=== PATIENT | female | born 2005 | race Caucasian/White ===

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

== ENCOUNTER 2024-03-26 20:16 | Emergency (ER) | payer MEDICAID, OTHER ==
--- NOTE | 2024-03-26 20:18 | ERPHSYRPT ---
- History of Present Illness Time Seen by Provider: 03/26/24 20:18 Source: patient, family Exam Limitations: no limitations Physician History: This is a 18-year-old white female patient who was swimming at a pool and dove into the pool and felt a "pop" in her left ear. This occurred approximately 1700 prior to arrival. Over the next couple of hours her pain was worsening. Patient has no new drug allergies and she takes no medications chronically. Patient did receive ibuprofen at home but this did not help her pain much. Patient has no visual changes and patient did not lose consciousness. Timing/Duration: abrupt onset ENT Location: ear (L) Prearrival Treatment: over the counter meds (Ibuprofen) Modifying Factors: Improves With: nothing Associated Symptoms: ear pain (L) Allergies/Adverse Reactions: No Known Drug Allergies Allergy (Verified 03/26/24 20:27) Hx Tetanus, Diphtheria Vaccination/Date Given: Yes Hx Influenza Vaccination/Date Given: No Hx Pneumococcal Vaccination/Date Given: No Travel Risk - International Travel Have you traveled outside of the country in past 3 weeks: No - Emerging Infectious Disease Are you exhibiting symptoms associated with any current EIDs: No - Review of Systems Constitutional: No Symptoms Eyes: No Symptoms Ears, Nose, & Throat: Ear Pain (Left), No Hearing Changes, No Tinnitus Respiratory: No Symptoms Cardiac: No Symptoms Abdominal/Gastrointestinal: No Symptoms Genitourinary Symptoms: No Symptoms Musculoskeletal: No Symptoms Skin: No Symptoms Neurological: No Symptoms Psychological: No Symptoms Endocrine: No Symptoms Hematologic/Lymphatic: No Symptoms Immunological/Allergic: No Symptoms All Other Systems: Reviewed and Negative - Past Medical History Pertinent Past Medical History: No - Past Surgical History Past Surgical History: No - Social History Smoking Status: Never smoker Exposure to second hand smoke: No Drug Use: none Patient Lives Alone: No - Nursing Vital Signs Nursing Vital Signs: Initial Vital Signs Temperature 97.7 F 03/26/24 20:20 Pulse Rate 73 03/26/24 20:20 Respiratory Rate 16 03/26/24 20:20 Blood Pressure 121/73 03/26/24 20:20 O2 Sat by Pulse Oximetry 98 03/26/24 20:20 Pain Scale Pain Intensity 5 - Physical Exam General Appearance: no apparent distress, alert, anxiety Eye Exam: bilateral eye: normal inspection, PERRL, EOMI Ear Exam: right ear: canal normal, TM normal, left ear: tenderness, TM red, TM bulging, other (No perforation of tympanic membrane), bilateral ear: auricle normal Nasal Exam: normal inspection Throat Exam: normal Neck Exam: normal inspection, non-tender, supple, full range of motion, trachea midline Cardiovascular/Respiratory Exam: chest non-tender, no respiratory distress Abdominal Exam: non-tender Neurologic Exam: alert, oriented x 3, cooperative, collections rep II-XII nml as tested, nml cerebellar function, nml station & gait, sensation nml Skin Exam: normal color, warm, dry SpO2 Interpretation: normal O2 Delivery: Room Air - Course Nursing assessment & vital signs reviewed: Yes Ordered Tests: Medication Summary Discontinued Medications Generic Name Dose Route Start Last Admin Trade Name Freq PRN Reason Stop Dose Admin Amoxicillin 500 mg 03/26/24 21:24 03/26/24 21:29 Amoxicillin Trihydrate 500 Mg Capsule PO 03/26/24 21:25 500 mg STAT ONE Administration Amoxicillin Confirm 03/26/24 21:27 Amoxicillin Trihydrate 500 Mg Capsule Administered 03/26/24 21:28 Dose 500 mg .ROUTE .STK-MED ONE Prednisone 20 mg 03/26/24 21:25 03/26/24 21:29 Prednisone 20 Mg Tablet PO 03/26/24 21:26 20 mg STAT ONE Administration Prednisone Confirm 03/26/24 21:27 Prednisone 20 Mg Tablet Administered 03/26/24 21:28 Dose 20 mg .ROUTE .STK-MED ONE - Progress Progress: improved, pain not gone completely, re-examined Progress Note: 03/26/24 21:53 My medical decision making and the assignment of low complexity to this patient's medical issue was based on the patient's past medical history, review of the patient's medication list, review of patient drug allergy list, history present illness and physical findings on examination. The workup in this patient does not require radiographic or laboratory studies. Counseled pt/family regarding: diagnosis, need for follow-up Medical Desision Making - Independent Historian Additional History obtained from: Mother - Diagnostic Testing Diagnostic test were ordered, analyzed, and reviewed by me: No - Risk of complications The pt has a mod risk of morbidity or mortality based on: Need for prescription drug management - Departure Departure Disposition: Home Clinical Impression: Left otitis media Condition: Stable Critical Care Time: No Referrals: CANDIDA ENGLISH [Primary Care Provider] - Follow up/PCP as directed Additional Instructions: Take the antibiotics and steroids as prescribed. After you use your [place] 5/325 pain medicine, resume plain Tylenol and ibuprofen for pain control. Call your primary care provider tomorrow, 03/27/2024, to make arranges for follow-up appointment for further evaluation management and to be seen in the next 3 to 5 days. Prescriptions: Amoxicillin 500 mg Cap [Amoxil 500 mg] 500 mg PO TID #30 cap Prednisone 5 mg [Deltasone 5 mg] 5 mg PO TID #12 tablet
[2024-03-26 20:27] VITALS: RESP 16; TEMP 97.7
[2024-03-26] MEDS ORDERED: AMOXIL 500 MG ONE (21:27)
[2024-03-26] MEDS ORDERED: DELTASONE 20 MG ONE (21:27)
[2024-03-26] MEDS: AMOXIL 500 MG PO ONE (21:29)
[2024-03-26] MEDS: DELTASONE 20 MG PO ONE (21:29)
[2024-03-26] MEDS ORDERED: NORCO 5/325 MG ONE (21:54)
[2024-03-26] MEDS: NORCO 5/325 MG PO ONE (21:56)
[2024-03-26 22:02] VITALS: BP 114/71; PULSE 68; O2SAT 99
== END 2024-03-26 22:02 | disposition home or self-care (01) ==
LOC: ED 20:16
DX: H66.92 Otitis media, unspecified, left ear (principal); H92.02 Otalgia, left ear; Z79.52 Long term (current) use of systemic steroids
CPT/HCPCS: 99282; A9270-GY

== ENCOUNTER 2025-02-04 19:30 | Emergency (ER) | payer MEDICAID, OTHER ==
[2025-02-04 20:29] VITALS: TEMP 97.5; O2SAT 99
--- NOTE | 2025-02-04 20:53 | ERPHSYRPT ---
- History of Present Illness Source: patient Exam Limitations: no limitations Patient Subjective Stated Complaint: fell out of truck bed and fell on rt side yesterday. 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 no visible scrapes or injuries, pt grimacing when moves neck. pt states she did not start having neck pain until 6 hours post fall Physician History: Patient fell out of the truck bed trying to get out. She is trying to ease over the tailgate and rolled out. She landed on her right side. She has right shoulder pain and left neck pain. The neck pain is in the cervical muscles. She has no neurological deficits. There is no obvious deformities.There is no head injury or loss of consciousness.The event happened about 36 hours ago. Allergies/Adverse Reactions: No Known Drug Allergies Allergy (Verified 03/26/24 20:27) Hx Tetanus, Diphtheria Vaccination/Date Given: Yes Hx Influenza Vaccination/Date Given: No Hx Pneumococcal Vaccination/Date Given: No Travel Risk - International Travel Have you traveled outside of the country in past 3 weeks: No - Emerging Infectious Disease Are you exhibiting symptoms associated with any current EIDs: No - Review of Systems Constitutional: No Symptoms Eyes: No Symptoms Respiratory: No Symptoms Cardiac: No Symptoms Musculoskeletal: Joint Pain (Right shoulder) Skin: No Symptoms Neurological: No Symptoms All Other Systems: Reviewed and Negative - Past Medical History Pertinent Past Medical History: No - Past Surgical History Past Surgical History: No - Female History Hx Last Menstrual Period: 01/17/25 Hx Now: No - Social History Smoking Status: Never smoker Exposure to second hand smoke: No Drug Use: none - Social Determinants of Health Will the patient participate in the screening: Declined to provide - Nursing Vital Signs Nursing Vital Signs: Initial Vital Signs Temperature 97.5 F 02/04/25 20:09 Pulse Rate 84 02/04/25 20:09 Respiratory Rate 20 02/04/25 20:09 Blood Pressure 125/77 02/04/25 20:09 O2 Sat by Pulse Oximetry 99 02/04/25 20:09 Pain Scale Pain Intensity 4 - Physical Exam General Appearance: no apparent distress Eyes, Ears, Nose, Throat Exam: normal ENT inspection Neck Exam: limited range of motion (Due to pain), tenderness lateral (Left side), tenderness midline (Diffusely down the entire C-spine), No subcutaneous emphysema Cardiovascular/Respiratory Exam: chest non-tender, normal breath sounds Abdominal Exam: non-tender Shoulder Exam: limited ROM (Due to pain. There is no obvious deformities. Peripheral neurovascular is intact distal to the injury. There is no point tenderness.) SpO2: 99 Comments: Pain response seems exaggerated - Course Nursing assessment & vital signs reviewed: Yes Ordered Tests: Active Orders 24 hr Category Date Time Status CERVICAL SPINE (2 OR 3 VIEW) Stat Exams 02/04/25 20:49 Taken SHOULDER Stat Exams 02/04/25 20:49 Taken Medication Summary Discontinued Medications Generic Name Dose Route Start Last Admin Trade Name Peterson PRN Reason Stop Dose Admin Hydrocodone Bitart/Acetaminophen 1 tab 02/04/25 20:50 02/04/25 21:40 Hydrocodone/Apap 5/325 1 Tab Tablet PO 02/04/25 20:51 1 tab STAT ONE Administration Hydrocodone Bitart/Acetaminophen Confirm 02/04/25 21:39 Hydrocodone/Apap 5/325 1 Tab Tablet Administered 02/04/25 21:40 Dose 1 tab .ROUTE .STK-MED ONE - Progress Progress: improved Progress Note: Patient got x-rays of her cervical spine and shoulder. They went interpreted by me. The right shoulder showed no acute findings. The cervical spine film showed some reverse lordosis. The patient stable. Unguinal put her in a sling for her shoulder and give her some [place] and ibuprofen. I think she just has a cervical strain and a shoulder strain. She is a follow-up with her primary care doctor return symptoms worsen. 02/04/25 22:16 - Departure Departure Disposition: Home Clinical Impression: Right shoulder strain, Cervical strain, acute Condition: Stable Critical Care Time: No Referrals: CANDIDA ENGLISH [Primary Care Provider, INTERNAL MEDICINE] - Follow up/PCP as directed Instructions: Cervical Sprain ED Additional Instructions: Meds as directed Ice the areas that hurt, and wear sling as needed
[2025-02-04] MEDS ORDERED: NORCO 5/325 MG ONE (21:39)
[2025-02-04] MEDS: NORCO 5/325 MG PO ONE (21:40)
[2025-02-04 22:27] VITALS: BP 108/71; PULSE 75; RESP 18
--- NOTE | 2025-02-05 08:46 | XRAY ---
Indication: Pain following fall. Comparison: None 3 view cervical spine demonstrates minimal lordotic reversal, positional versus paraspinal spasm. No other bony, articular, or soft tissue abnormalities.
--- NOTE | 2025-02-05 08:47 | XRAY ---
Indication: Pain following fall. Comparison: None 3 view right shoulder obtained. No bony, articular, or soft tissue abnormalities.
== END 2025-02-04 22:30 | disposition home or self-care (01) ==
LOC: ED 19:30
DX: S16.1XXA Strain of muscle, fascia and tendon at neck level, initial encounter (principal); S46.911A Strain of unspecified muscle, fascia and tendon at shoulder and upper arm level, right arm, initial encounter; V58.4XXA Person boarding or alighting a pick-up truck or van injured in noncollision transport accident, initial encounter; Z79.891 Long term (current) use of opiate analgesic
CPT/HCPCS: 72040; 73030; 99283; A9270-GY

== ENCOUNTER 2025-05-05 22:39 | Emergency (ER) | payer MEDICAID ==
--- NOTE | 2025-05-05 23:23 | ERPHSYRPT ---
- History of Present Illness Time Seen by Provider: 05/05/25 23:23 Source: patient Exam Limitations: no limitations Physician History: This is a 19-year-old white female patient with complaint of right shoulder pain after falling 6 days ago. She had similar episode of a fall in January 2025 and per patient report, the x-ray did not show anything emergent. Patient fell again onto her right shoulder. Patient has a sling at home which she uses at night for pain control. Patient arrives for private vehicle and does not have a primary care provider. Occurred: days ago (6) Method of Injury: fell Quality: constant, aching Severity of Pain-Max: moderate Severity of Pain-Current: moderate Extremities Pain Location: shoulder: right Modifying Factors: Improves With: movement Associated Symptoms: none Allergies/Adverse Reactions: No Known Drug Allergies Allergy (Verified 05/05/25 23:19) Hx Tetanus, Diphtheria Vaccination/Date Given: Yes Hx Influenza Vaccination/Date Given: No Hx Pneumococcal Vaccination/Date Given: No Travel Risk - International Travel Have you traveled outside of the country in past 3 weeks: No - Emerging Infectious Disease Are you exhibiting symptoms associated with any current EIDs: No - Review of Systems Constitutional: No Symptoms Eyes: No Symptoms Ears, Nose, & Throat: No Symptoms Respiratory: No Symptoms Cardiac: No Symptoms Abdominal/Gastrointestinal: No Symptoms Genitourinary Symptoms: No Symptoms Musculoskeletal: Fall, Injury (Right shoulder pain) Skin: No Symptoms Neurological: No Symptoms Psychological: No Symptoms Endocrine: No Symptoms Hematologic/Lymphatic: No Symptoms Immunological/Allergic: No Symptoms All Other Systems: Reviewed and Negative - Past Medical History Pertinent Past Medical History: No - Past Surgical History Past Surgical History: No - Female History Hx Last Menstrual Period: none - Social History Smoking Status: Never smoker Exposure to second hand smoke: No Drug Use: none - Social Determinants of Health Will the patient participate in the screening: Declined to provide - Nursing Vital Signs Nursing Vital Signs: Initial Vital Signs Temperature 97.0 F 05/05/25 23:21 Pulse Rate 80 05/05/25 23:21 Respiratory Rate 18 05/05/25 23:21 Blood Pressure 145/91 05/05/25 23:21 O2 Sat by Pulse Oximetry 100 05/05/25 23:21 Pain Scale Pain Intensity 5 - Physical Exam General Appearance: no apparent distress, alert, anxiety Eyes, Ears, Nose, Throat Exam: normal ENT inspection, moist mucous membranes Neck Exam: normal inspection, non-tender, supple, full range of motion Cardiovascular/Respiratory Exam: chest non-tender, normal breath sounds, regular rate/rhythm, heart sounds normal, no respiratory distress Abdominal Exam: non-tender Back Exam: normal inspection, normal range of motion, No CVA tenderness, No vertebral tenderness Shoulder Exam: normal inspection, no evidence of injury, limited ROM, soft tissue tenderness, No deformity Elbow/Forearm Exam: normal inspection, non-tender, no evidence of injury, normal ROM Wrist Exam: normal inspection, non-tender, no evidence of injury, No normal ROM Hand Exam: normal inspection, non-tender, no evidence of injury, normal ROM Neuro/Tendon Exam: normal sensation, normal motor functions, normal tendon functions, responds to pain, no evidence tendon injury Mental Status Exam: alert, oriented x 3, cooperative Skin Exam: normal color, warm, dry SpO2 Interpretation: normal O2 Delivery: Room Air - Course Nursing assessment & vital signs reviewed: Yes Ordered Tests: Active Orders 24 hr Category Date Time Status SHOULDER Stat Exams 05/05/25 23:40 Taken - Progress Progress: improved, pain not gone completely, re-examined Progress Note: 05/05/25 23:52 My medical decision making and the assignment of low complexity of this patient' s medical issue today is based on review of the patient's past medical history, review the patient's medication list, reviewed patient drug allergy list, history present illness and physical findings on examination. The workup in this patient includes x-ray of the patient's right shoulder. 05/06/25 00:02 I interpreted the patient's preliminary x-ray of her right shoulder. There is no evidence of any acute fracture or dislocation. Counseled pt/family regarding: diagnosis, need for follow-up, rad results Medical Desision Making - Independent Historian Additional History obtained from: Family - Diagnostic Testing Diagnostic test were ordered, analyzed, and reviewed by me: Yes Radiological Interpretation: Interpreted by me - Risk of complications Low Risk: Low risk of morbidity from additional dx testing or treatment The pt has a mod risk of morbidity or mortality based on: Need for prescription drug management - Departure Departure Disposition: Home Clinical Impression: Chronic right shoulder pain Condition: Stable Critical Care Time: No Referrals: DOCTOR,NO FAMILY [Primary Care Provider, UNKNOWN] - Follow up/PCP as directed Additional Instructions: Alternate ice and heat to right shoulder. Wear sling for pain control. Take your medications as prescribed. Follow-up at [facility] orthopedic clinic on 05/06/2025 between 8 AM and 10 AM for further evaluation and management. It is a walk-in clinic. You do not need to have an appointment. Prescriptions: Prednisone 10 mg [Deltasone 10 mg] 10 mg PO TID #12 tablet Orphenadrine Citrate 100 mg [Norflex 100 MG Tablet] 100 mg PO BID #10 tab
[2025-05-05 23:27] VITALS: TEMP 97; O2SAT 100
[2025-05-06] MEDS ORDERED: NORCO 5/325 MG ONE (00:09)
[2025-05-06] MEDS: NORCO 5/325 MG PO ONE (00:10)
[2025-05-06 00:17] VITALS: BP 122/84; PULSE 74; RESP 16
--- NOTE | 2025-05-06 08:51 | XRAY ---
Indication: Pain following injury 3 months ago. Comparison: February 04, 2025 3 view right shoulder obtained. Again no bony, articular, or soft tissue abnormalities.
== END 2025-05-06 00:29 | disposition home or self-care (01) ==
LOC: ED 22:39
DX: G89.29 Other chronic pain (principal); M25.511 Pain in right shoulder; Z79.52 Long term (current) use of systemic steroids; Z79.899 Other long term (current) drug therapy